=== PATIENT | male | born 1965 | race Caucasian/White ===

== ENCOUNTER 2022-01-06 10:39 | Outpatient (CLI) | payer OTHER ==
[2022-01-06] MEDS ORDERED: GADOBUTROL 10 MMOL/10 ML VIAL ONE (11:34)
[2022-01-06] MEDS ORDERED: GADOBUTROL 10 MMOL/10 ML VIAL IVP ONE (11:44)
--- NOTE | 2022-01-06 15:04 | MRI Report ---
PROCEDURE: IACS W/WO INDICATIONS: HEARING LOSS CONTRAST: IV CONTRAST: Gadavist ml: 9.8 TECHNIQUE: Noncontrast sagittal T1 spin echo, axial FLAIR, axial gradient echo, axial diffusion and ADC through the brain. Axial thin-slice 3D CISS, coronal balanced GE, axial T1 spin echo with fat saturation thr ough the internal auditory canals. After the administration of contrast, thin slice axial and begum l T1 spin echo with fat saturation through the internal auditory canals, and axial T1 spin echo with fat saturation through the brain. COMPARISON: None. FINDINGS: There is no mass in the cerebellopontine angles or internal auditory canals. No abnormal signal or en hancement along the course of the 7th or 8th cranial nerve complexes. Normal fluid signal in the inne r ear structures. No abnormal fluid signal in the middle ear structures. There are trace left and lar ge right mastoid air cell effusions. No restricted diffusion to indicate recent ischemia. The major intracranial vascular flow related sig nal voids are maintained. No abnormal intracranial susceptibility or enhancement. No mass effect or m idline shift. Normal ventricular caliber and position. Patent basilar cisterns. No gross orbital abno rmality. IMPRESSION: No findings to explain hearing loss. Large right and trace left mastoid air cell effusions. Reviewed by: Justyn Ramirez MD on 01/06/2022 3:03 PM PDT Approved by: Justyn Ramirez MD on 01/06/2022 3:03 PM PDT Station ID: [id number]
== END 2022-01-06 10:40 | disposition home or self-care (01) ==
LOC: LAB 10:39
PROVIDERS: ATTEND Otolaryngology
DX: H90.5 Unspecified sensorineural hearing loss (principal); H74.8X3 Other specified disorders of middle ear and mastoid, bilateral
CPT/HCPCS: 36415; 70543; 82565; A9585